=== PATIENT | female | born 1980 | race Caucasian/White ===

== ENCOUNTER 2023-10-05 04:48 | Emergency (ER) | payer MEDICAID ==
[2023-10-05] MEDS: Acetaminophen 500 MG Tab PO ONE (05:31)
[2023-10-05] MEDS: Ibuprofen 400 MG Tab PO ONE (07:01)
[2023-10-05] MEDS: Take Home: traMADol 50 MG, 4 Tab Pack PO ONE (07:42)
== END 2023-10-05 07:45 | disposition home or self-care (01) ==
LOC: LL.ED 04:48
DX: S52.572A Other intraarticular fracture of lower end of left radius, initial encounter for closed fracture (principal); Z79.899 Other long term (current) drug therapy; W20.8XXA Other cause of strike by thrown, projected or falling object, initial encounter
CPT/HCPCS: 29125; 73110-LT; 99283-25; A9270-GY